=== PATIENT | female | born 1960 | race Caucasian/White ===

== ENCOUNTER 2021-02-17 15:21 | Emergency (ER) | payer MEDICARE, MEDICAID ==
[~2021-02-17] VITALS: Ht 167.6 cm; Wt 60.5 kg
[2021-02-17 15:33] VITALS: BP 150/93
--- NOTE | 2021-02-17 16:08 | NUR ---
PATIENT REPORTS DRINKING A PINT OF VODKA DAILY. LAST ETOH 2 HOURS AGO. WANTS TO STOP DRINKING BUT A FRIEND ON August. SHE REPORTS "PTSD" FROM IT PATIENT HAS BEEN TO THE [place] BEFORE AND DOES NOT WANT TO GO THRU WITHDRAWALS
--- NOTE | 2021-02-17 16:15 | NUR ---
PATIENT JUST GOT UP AND LEFT. I ASKED HER IF SHE HAD A PLACE TO STAY, ,IF SHE WOULD LIKE SOME FOOD OR A RIDE SOMEHWERE AND THE PATIENT JUST KEPT ON WALKING AND DID NOT ANSWER ME.
[2021-02-17] MEDS ORDERED: CHLO25CA10 PO (16:16)
--- NOTE | 2021-02-17 16:16 | NUR ---
i ASKED THE PATIENT TO WAIT A MINUTE FOR HER DISCHARGE PRESCRIPTION AND PAPERWORK. CHRISTI DID NOT RESPOND AND KEPT ON WALKING.
--- NOTE | 2021-02-17 16:17 | NUR ---
ENRIQUE MCGUIRE AWARE THAT PATIENT LEFT; NO PHONE NUMBER LISTED TO CALL PATIENT; COMPLEX CARE NURSE PRACTITIONERJUNE SOLANO
== END 2021-02-17 16:31 | disposition home or self-care (01) ==
LOC: ER 15:22
DX: F10.10 Alcohol abuse, uncomplicated (principal); I10 Essential (primary) hypertension; Y90.9 Presence of alcohol in blood, level not specified
CPT/HCPCS: 99283

== ENCOUNTER 2021-02-18 10:21 | Emergency (ER) | payer MEDICARE, MEDICAID ==
[~2021-02-18] VITALS: Ht 170.2 cm; Wt 61.4 kg
[~2021-02-18 10:21] MED LIST: CHLO25CA10 PO
[2021-02-18] MEDS ORDERED: ondansetron 4mg rapidly disintigrating tab PO ONE (10:40)
[2021-02-18] MEDS ORDERED: diazepam 5mg tablet PO ONE (10:40)
[2021-02-18 11:07] LABS: BASOPHILS # (AUTO) 0.1 X10'3 (0-0.2); BASOPHILS % (AUTO) 0.9 % (0-1); EOSINOPHILS % (AUTO) 0.6 % (0-6); HEMATOCRIT 40.4 % (35.0-45.0); HEMOGLOBIN 13.6 g/dl (12.0-16.0); LYMPHOCYTES # (AUTO) 2.3 X10'3 (1.1-4.8); LYMPHOCYTES % (AUTO) 33.2 % (21-51); MEAN CORPUSCULAR HEMOGLOBIN 32.1 PG (27.0-31.0); MEAN CORPUSCULAR HGB CONC 33.7 g/dL (33.0-36.5); MEAN CORPUSCULAR VOLUME 95.1 FL (78-98); MEAN PLATELET VOLUME 8.5 FL (7.4-10.4); MONOCYTES # (AUTO) 0.3 X10'3 (0-0.9); MONOCYTES % (AUTO) 3.8 % (2-12); NEUTROPHILS # (AUTO) 4.3 X10'3 (1.8-7.7); NEUTROPHILS % (AUTO) 61.5 % (42-75); PLATELET COUNT 195 X10'3 (140-440); RED BLOOD COUNT 4.25 X10'6 (4.20-5.60); RED CELL DISTRIBUTION WIDTH 15.1 % (11.5-14.5)
[2021-02-18 11:15] LABS: ALANINE AMINOTRANSFERASE 23 U/L (12-78); ALBUMIN/GLOBULIN RATIO 1.1 (1.1-1.5); ALKALINE PHOSPHATASE 85 IU/L (46-116); ANION GAP 13 (8-16); ASPARTATE AMINO TRANSFERASE 21 U/L (10-37); BILIRUBIN,TOTAL 0.6 MG/DL (0.1-1.0); BLOOD UREA NITROGEN 9 MG/DL (7-18); BUN/CREATININE RATIO 14.1 (6.6-38.0); CALCIUM 8.9 MG/DL (8.5-10.1); CHLORIDE 103 MMOL/L (99-107); CREATININE 0.64 MG/DL (0.40-0.90); GLUCOSE 135 MG/DL (70-104); LIPASE 123 U/L (73-393); POTASSIUM 3.3 MMOL/L (3.5-5.1); SODIUM 142 MMOL/L (135-145); TOTAL CARBON DIOXIDE 26.4 MMOL/L (24-32); TOTAL PROTEIN 7.5 G/DL (6.4-8.2); eGFR > 90 ML/MIN
[2021-02-18 11:30] VITALS: BP 105/81
== END 2021-02-18 11:43 | disposition home or self-care (01) ==
LOC: ER 10:23
DX: F10.239 Alcohol dependence with withdrawal, unspecified (principal); R11.10 Vomiting, unspecified; I10 Essential (primary) hypertension; Z88.8 Allergy status to other drugs, medicaments and biological substances; Z79.899 Other long term (current) drug therapy; Y90.9 Presence of alcohol in blood, level not specified
CPT/HCPCS: 36415; 80053; 83690; 85025; 99283

== ENCOUNTER 2021-03-07 17:14 | Emergency (ER) | payer MEDICARE, MEDICAID ==
[~2021-03-07] VITALS: Ht 170.2 cm; Wt 61.4 kg
[2021-03-07 17:35] VITALS: BP 115/49
[2021-03-07] MEDS ORDERED: normal saline 1000ML IV soln IVB ONE (17:40)
[2021-03-07 18:00] LABS: BASOPHILS # (AUTO) 0.1 X10'3 (0-0.2); BASOPHILS % (AUTO) 0.9 % (0-1); EOSINOPHILS % (AUTO) 0.2 % (0-6); HEMATOCRIT 39.1 % (35.0-45.0); HEMOGLOBIN 13.1 g/dl (12.0-16.0); LYMPHOCYTES # (AUTO) 1.5 X10'3 (1.1-4.8); LYMPHOCYTES % (AUTO) 19.9 % (21-51); MEAN CORPUSCULAR HEMOGLOBIN 32.8 PG (27.0-31.0); MEAN CORPUSCULAR HGB CONC 33.3 g/dL (33.0-36.5); MEAN CORPUSCULAR VOLUME 98.5 FL (78-98); MEAN PLATELET VOLUME 8.9 FL (7.4-10.4); MONOCYTES # (AUTO) 0.2 X10'3 (0-0.9); MONOCYTES % (AUTO) 2.5 % (2-12); NEUTROPHILS # (AUTO) 5.8 X10'3 (1.8-7.7); NEUTROPHILS % (AUTO) 76.5 % (42-75); PLATELET COUNT 241 X10'3 (140-440); RED BLOOD COUNT 3.98 X10'6 (4.20-5.60); RED CELL DISTRIBUTION WIDTH 16.1 % (11.5-14.5); WHITE BLOOD COUNT 7.6 X10'3 (4.5-11.0)
[2021-03-07 18:12] LABS: ALANINE AMINOTRANSFERASE 19 U/L (12-78); ALBUMIN 4.2 G/DL (3.4-5.0); ALBUMIN/GLOBULIN RATIO 1.3 (1.1-1.5); ALKALINE PHOSPHATASE 65 IU/L (46-116); ANION GAP 20 (8-16); ASPARTATE AMINO TRANSFERASE 29 U/L (10-37); BILIRUBIN,TOTAL 0.3 MG/DL (0.1-1.0); BLOOD UREA NITROGEN 27 MG/DL (7-18); BUN/CREATININE RATIO 38.6 (6.6-38.0); CALCIUM 9.5 MG/DL (8.5-10.1); CHLORIDE 107 MMOL/L (99-107); GLUCOSE 64 MG/DL (70-104); LIPASE 166 U/L (73-393); POTASSIUM 3.1 MMOL/L (3.5-5.1); SODIUM 149 MMOL/L (135-145); TOTAL CARBON DIOXIDE 21.7 MMOL/L (24-32); TOTAL PROTEIN 7.5 G/DL (6.4-8.2); eGFR 85 ML/MIN
[2021-03-07 18:13] LABS: ETHANOL 0.327 GM/DL (0.0-0.010)
[2021-03-07] MEDS ORDERED: POTA20TA19 PO (19:53)
--- NOTE | 2021-03-07 20:20 | NUR ---
PT IS DC READY. PT ASSISTED TO STAND AND GOT ONTO BEDSIDE.
--- NOTE | 2021-03-07 20:25 | NUR ---
PT DAUGHTER CALLED ASKING ABOUT INFORMATION ON THE PT. SHE ALSO GAVE HER ADDRESS FOR A [employer] CAB TO TAKE THE PT HOME.
--- NOTE | 2021-03-07 20:27 | NUR ---
C-COLLAR TAKEN OFF BY DR. GONZALEZ.
== END 2021-03-07 20:43 | disposition home or self-care (01) ==
LOC: ER 17:15
DX: E86.0 Dehydration (principal); E16.2 Hypoglycemia, unspecified; E87.6 Hypokalemia; F10.129 Alcohol abuse with intoxication, unspecified; I10 Essential (primary) hypertension; Z88.8 Allergy status to other drugs, medicaments and biological substances; Z79.899 Other long term (current) drug therapy; Y90.8 Blood alcohol level of 240 mg/100 ml or more
CPT/HCPCS: 36415; 80053; 80320; 82948; 83690; 85025; 96360; 99284; J7030

== ENCOUNTER 2024-02-04 11:09 | Outpatient (CLI) | payer MEDICARE, MEDICAID | END 2024-02-04 23:59 | disposition home or self-care (01) | LOC: RAD 11:09 | PROVIDERS: ATTEND Specialist | DX: S42.202P Unspecified fracture of upper end of left humerus, subsequent encounter for fracture with malunion (principal); M25.512 Pain in left shoulder; X58.XXXD Exposure to other specified factors, subsequent encounter; M19.012 Primary osteoarthritis, left shoulder; M25.712 Osteophyte, left shoulder | CPT/HCPCS: 73200 ==